=== PATIENT | female | born 1985 | race Two or more races ===

== ENCOUNTER 2016-10-24 03:33 | Inpatient (IN) | payer MEDICAID ==
[~2016-10-24] VITALS: Ht 1 cm; Wt 0.5 kg
[~2016-10-24 03:33] MED LIST: PREN-96 PO
[2016-10-24] MEDS: LACTATED RINGER'S 1,000 ML IV SCH ×2 (03:42→11:42)
[2016-10-24] MEDS ORDERED: LACT. RINGERS/OXYTOCIN 20UNITS 1,000 ML IV SCH ×2 (03:42→20:30)
[2016-10-24] MEDS ORDERED: PHISODERM TOP SOLN 240ML BTL TOP PRN (03:45)
[2016-10-24] MEDS ORDERED: METHYLERGONOVINE MALEATE 0.2 MG/ML AMP IM PRN (03:45)
[2016-10-24] MEDS ORDERED: WITCH HAZEL-GLYCERIN PAD TOP PRN (03:45)
[2016-10-24] MEDS ORDERED: NALBUPHINE HCL 10 MG/1ml INJECTION IV PRN (03:45)
[2016-10-24] MEDS ORDERED: CARBOPROST TROMETHAMINE 250 MCG/1ML VIAL IM PRN (03:45)
[2016-10-24] MEDS ORDERED: LIDOCAINE 2%HCL (LOCAL ANESTH.) INJ 20ML MDV IJ ONE (03:45)
[2016-10-24] MEDS ORDERED: DERMOPLAST 60ML BOTTLE TOP PRN (03:45)
[2016-10-24 04:20] LABS: Basophils # (auto) 0 uL; Basophils % (auto) 0.2 % (0.0-2.0); Eosinophils # (auto) 0.1 uL; Hematocrit 36.9 % (36.0-46.0); Hemoglobin 12.7 g/dL (12.2-16.2); Lymphocytes # (auto) 1.8 uL; Lymphocytes % (auto) 16.9 % (10.0-50.0); Mean Corpuscular Hemoglobin 30.8 pg (28.0-32.0); Mean Corpuscular Hgb Conc. 34.4 g/dL (32.0-36.0); Mean Corpuscular Volume 89.6 fL (80.0-100.0); Mean Platelet Volume 8.6 fL (7.4-10.4); Monocytes # (auto) 0.6 uL; Monocytes % (auto) 5.2 % (0.0-12.0); Neutrophils # (auto) 8.1 uL; Neutrophils % (auto) 76.7 % (37.0-80.0); Platelet Count (auto) 247 10^3/uL (140-450); Red Cell Distribution Width 12.7 % (11.6-16.0); White Blood Cell 10.6 10^3/uL (4.4-10.8)
[2016-10-24 04:34] LABS: Urine Bilirubin Negative (Negative); Urine Blood Negative /uL (Negative); Urine Color Yellow (Yellow); Urine Glucose Normal (Normal); Urine Ketone Negative (Negative); Urine Nitrite Negative (Negative); Urine RBC 1 /hpf (0 - 4); Urine Squamous Epithelial Cell MOD /hpf (<5); Urine Urobilinogen Normal (Negative); Urine pH 6.5 (5.0-8.0)
[2016-10-24 04:40] LABS: Albumin 2.8 g/dL (3.4-5.0); BUN/Creatinine Ratio 24.5; Bilirubin, Total 0.6 mg/dL (0.2-1.0); Potassium 3.7 mmol/L (3.5-5.1)
[2016-10-24 04:42] LABS: Partial Thromboplastin Time 27.7 sec (22.64-33.71); Prothrombin Time 9.5 sec (9.37-12.3)
[2016-10-24 04:53] LABS: INR 0.87 (0.9-1.15)
[2016-10-24] MEDS ORDERED: PROMETHAZINE HCL 25 MG/ML 1ML ONE (14:45)
[2016-10-24] MEDS ORDERED: PROMETHAZINE HCL 25 MG/ML 1ML IV PRN (14:45)
[2016-10-24] MEDS ORDERED: LACT. RINGERS/OXYTOCIN 20UNITS 500 ML IV ONE ×2 (17:25→19:30)
[2016-10-24] MEDS ORDERED: ACETAMINOPHEN 325 MG TAB PO PRN ×2 (17:30→19:30)
[2016-10-24] MEDS ORDERED: IBUPROFEN 600 MG TAB PO PRN ×2 (17:30→19:30)
[2016-10-24] MEDS ORDERED: METHYLERGONOVINE MALEATE 0.2 MG/ML AMP IM ONE (19:30)
[2016-10-24 19:57] VITALS: BP 101/61
[2016-10-24 23:50] VITALS: BP 117/66
[2016-10-25 03:33] VITALS: BP 112/55
[2016-10-25 08:00] VITALS: BP 101/55
[2016-10-25 11:35] VITALS: BP 122/63
[2016-10-25 15:48] VITALS: BP 101/56
== END 2016-10-25 17:25 | disposition home or self-care (01) | DRG 560 ==
LOC: LDRP 03:33 → OBSVTOIN 03:33
PROVIDERS: ADMIT Obstetrics & Gynecology; ATTEND Obstetrics & Gynecology
PROC: 10E0XZZ Delivery of Products of Conception, External Approach (ICD-10-PCS; principal; 2016-10-24)
PROC: 10907ZC Drainage of Amniotic Fluid, Therapeutic from Products of Conception, Via Natural or Artificial Opening (ICD-10-PCS; 2016-10-24)
DX: O62.3 Precipitate labor (principal); J45.909 Unspecified asthma, uncomplicated; O75.89 Other specified complications of labor and delivery; Z37.0 Single live birth; Z3A.39 39 weeks gestation of pregnancy
CPT/HCPCS: 36415; 59025; 59409; 80053; 80307; 81001; 85025; 85610; 85730; 86850; 86900; 86901; 96372; 96374; 96375; J2590